=== PATIENT | male | born 1980 | race Caucasian/White ===

== ENCOUNTER 2016-10-30 02:14 | Inpatient (IN) | payer MEDICAID, OTHER ==
[~2016-10-30] VITALS: Ht 167.6 cm; Wt 86.3 kg
[~2016-10-30 02:14] MED LIST: IBUPROFEN
--- NOTE | 2016-10-30 03:27 | ERA ---
ER Documentation Chief Complaint Date/Time DATE: 10/30/16 TIME: 03:26 Chief Complaint mid abd pain since 3 hours ago w/ vomiting HPI The patient is a 36-year-old male, presenting to the ER because of diffuse abdominal pain that began about 8 PM, associated with vomiting, initially foot then mucus. He denies similar symptoms previously, denies fever, chills, neck pain, chest pain, dysuria. He smokes socially, denies drinking Past medical history/surgical history: None ROS All systems reviewed and are negative except as per history of present illness. Medications Home Meds Discontinued Reported Medications [Ibuprofen] No Conflict Check 10/24/11 Allergies Allergies: Coded Allergies: No Known Allergy (Unverified , 10/30/16) PMhx/Soc History of Surgery: No (NO MEDICAL/SURGICAL HX) Anesthesia Reaction: No Hx Neurological Disorder: No Hx Respiratory Disorders: No Hx Cardiac Disorders: No Hx Psychiatric Problems: No Hx Miscellaneous Medical Probl: No Hx Alcohol Use: No Hx Substance Use: No Hx Tobacco Use: No Physical Exam Vitals Vital Signs Date Time Temp Pulse Resp B/P Pulse Ox O2 Delivery O2 Flow Rate FiO2 10/30/16 02:16 98.7 92 20 130/71 100 Physical Exam Const: No acute distress. Head: Atraumatic. Eyes: Normal Conjunctiva. ENT: Normal External Ears, Nose and Mouth. Neck: Full range of motion. No meningismus. Resp: Clear to auscultation bilaterally. Cardio: Regular rate and rhythm. Abd: Soft, non distended, normal bowel sounds, diffuse abdominal tenderness, more tenderness at the left lower quadrant, no rigidity, rebound, CVA tenderness Skin: No petechiae or rashes. Back: No midline or flank tenderness. Ext: No cyanosis, or edema. Neur: Awake and alert. No focal deficit Psych: Normal Mood and Affect. Result Diagram: 10/30/16 0330 10/30/16 033 Results 24 hrs Laboratory Tests Test 10/30/16 03:30 White Blood Count 11.510^3/ul Red Blood Count 5.2910^6/ul Hemoglobin 16.3g/dl Hematocrit 47.3% Mean Corpuscular Volume 89.4fl Mean Corpuscular Hemoglobin 30.8pg Mean Corpuscular Hemoglobin Concent 34.5g/dl Red Cell Distribution Width 12.3% Platelet Count 54119^3/UL Mean Platelet Volume 9.9fl Neutrophils % 85.3% Lymphocytes % 8.2% Monocytes % 5.4% Eosinophils % 0.6% Basophils % 0.2% Nucleated Red Blood Cells % 0.0/100WBC Neutrophils # (Manual) 9.810^3/ul Lymphocytes # 0.910^3/ul Monocytes # 0.610^3/ul Eosinophils # 0.110^3/ul Basophils # 0.010^3/ul Nucleated Red Blood Cells # 0.010^3/ul Sodium Level 146mmol/L Potassium Level 3.8mmol/L Chloride Level 104mmol/L Carbon Dioxide Level 27mmol/L Anion Gap 19 Blood Urea Nitrogen 16mg/dl Creatinine 0.90mg/dl Glucose Level 129mg/dl Calcium Level 9.5mg/dl Total Bilirubin 0.3mg/dl Direct Bilirubin 0.00mg/dl Indirect Bilirubin 0.3mg/dl Aspartate Amino Transf (AST/SGOT) 27IU/L Alanine Aminotransferase (ALT/SGPT) 39IU/L Alkaline Phosphatase 58IU/L Total Protein 7.9g/dl Albumin 4.3g/dl Globulin 3.60g/dl Albumin/Globulin Ratio 1.19 Lipase 83U/L Current Medications Medications (Trade) Dose Ordered Sig/Matilda Route PRN Reason Start Time Stop Time Status Last Admin Dose Admin Sodium Chloride (NS) 1,000 ml @ 1,000 mls/hr Q1H ONCE IV 10/30/16 04:00 10/30/16 04:59 DC 10/30/16 04:01 Morphine Sulfate (morphine) 4 mg ONCE STAT IV 10/30/16 03:55 10/30/16 03:57 DC 10/30/16 04:01 Ondansetron HCl (Zofran Inj) 4 mg ONCE STAT IV 10/30/16 03:55 10/30/16 03:57 DC 10/30/16 04:01 Hydromorphone HCl 1 mg 1 mg ONCE ONCE IV 10/30/16 04:42 10/30/16 04:43 DC 10/30/16 04:51 Ciprofloxacin/ Dextrose 200 ml @ 200 mls/hr Q12 IVPB 10/30/16 09:00 UNV Metronidazole (Flagyl 500 Mg (Pmx)) 100 ml @ 100 mls/hr Q8 IVPB 10/30/16 14:00 UNV Ondansetron HCl (Zofran Inj) 4 mg Q6H PRN IV NAUSEA AND/OR VOMITING 10/30/16 07:00 UNV Morphine Sulfate (morphine) 2 mg Q4H PRN IV pain 10/30/16 07:00 UNV Famotidine 20 mg 20 mg BID IV 10/30/16 09:00 UNV Dextrose/Sodium Chloride (D5-1/2ns) 1,000 ml @ 125 mls/hr Q8H IV 10/30/16 07:00 UNV Docusate Sodium (Colace) 100 mg BID PO 10/30/16 09:00 UNV Acetaminophen (Tylenol Tab) 650 mg Q6H PRN PO PAIN AND OR ELEVATED TEMP 10/30/16 07:00 UNV Procedures/[place] [address] Radiology Main Line: [phone] DIAGNOSTIC IMAGING REPORT Patient: LYNDSEY ANDERSON : 1980 Age: 36 Sex: M MR #: [id number] DOS: 10/30/16 0356 Ordering MD: MUNDO MARR MD Location: E/R Room/Bed: PROCEDURE: CT Abdomen and pelvis without contrast. CLINICAL INDICATION: Abdominal pain. TECHNIQUE: CT scan of the abdomen and pelvis was performed on a multi- detector high-resolution CT scanner. Contiguous axial images were obtained from the lung bases to the ischial tuberosities without intravenous contrast. Coronal and sagittal reformatted images were also obtained. Images were reviewed on the PACS workstation. One or more of the following dose reduction techniques were used: - Automated exposure control. - Adjustment of the mA and/or kV according to patient size. - Use of iterative reconstruction technique. Exam CTD/vol = 15.96 mGy. Total exam DLP = 2236.58 mGy-cm. COMPARISON: None. FINDINGS: Evaluation of the lung bases demonstrates mild bibasilar atelectasis. There are multiple nodules within the right middle lobe measuring up to 5 mm in size. There are multiple nodules within the left lower lobe measuring up to 5 mm. Abdomen: The liver is normal in size. There is no focal mass or dilatation of the biliary tree. The gallbladder is not distended. The spleen, pancreas and bilateral adrenal glands are within normal limits. Bilateral kidneys are normal in size with no contour deforming mass identified. There is no radiopaque renal or ureteral calculus identified. There is no hydronephrosis or hydroureter. The abdominal aorta is of normal caliber. There is moderate stranding and nodularity of the retroperitoneal and mesenteric fat. There are mild to moderately dilated loops of small bowel with air-fluid levels. There is moderate retained stool within the colon. There is no free air. A normal appendix is identified. There is no diverticulosis or diverticulitis. There is no ascites. Pelvis: The bladder is unremarkable. The prostate and seminal vesicles are within normal limits. There is trace pelvic free fluid. There is no significant pelvic adenopathy. Evaluation of the osseous structures demonstrates no suspicious lytic or blastic lesion. IMPRESSION: Moderate stranding and nodularity of the retroperitoneal and mesenteric fat represents nonspecific mesenteritis-adenitis. Neoplastic process such as lymphoma should also be considered. Mild to moderately dilated loops of small bowel compatible with an ileus. Follow-up is recommended to exclude developing obstruction. Trace pelvic free fluid. Multiple nodules within bilateral lung base measuring up to 5 mm size. Further evaluation for metastatic disease is recommended. Mild bibasilar atelectasis. A call report was made to Dr. Marr at 04:33 a.m. .Mak Sahu MD, MD Date Time Electronically viewed and signed by .Mak Sahu MD, MD on 10/30/2016 04:36 .T/ CC: MUNDO MARR MD [place] [id number] Radiology Main Line: [phone] DIAGNOSTIC IMAGING REPORT Patient: LYNDSEY ANDERSON : 1980 Age: 36 Sex: M MR #: [id number] DOS: 10/30/16 0439 Ordering MD: MUNDO MARR MD Location: E/R Room/Bed: PROCEDURE: XR Chest. CLINICAL INDICATION: Shortness of breath TECHNIQUE: A single AP view of the chest was obtained. COMPARISON: None. FINDINGS: Lung volumes are low. No focal airspace opacification, pleural effusion or pneumothorax is seen. The cardiomediastinal silhouette is within normal limits for size. The osseous structures are unremarkable. IMPRESSION: Unremarkable chest x-ray. RPTAT: HH .Tessa Mackenzie MD, MD Date Time Electronically viewed and signed by .Tessa Mackenzie MD, MD on 10/30/2016 05 :49 .G/ CC: MUNDO MARR MD MEDICAL MAKING DECISION: The patient is a 36-year-old male, presenting to the ER because of acute enteric adenitis, acute ileus, concerning for lymphoma. He went to 1 L normal saline for clinical dehydration, morphine 4 mg IV and Dilaudid 1 mg IV for pain and Zofran formula IV for nausea with good response The differential diagnoses considered include but are not limited to cholelithiasis, cholecystitis, cystitis, pancreatitis, hepatitis, gastritis, peptic ulcer disease, gastric ulcer, appendicitis, diverticulitis, cholangitis, choledocholithiasis, partial small bowel obstruction, malignancy. Departure Diagnosis: Primary Impression: Abdominal pain Additional Impressions: Mesenteric adenitis Ileus Condition: Good Comments Consultation: I discussed the patient with the on-call surgeon Dr. Perez at 4: 50 AM, who was made aware of the lab, treatment, the present condition and he accepted the consult I discussed the findings with the patient. I discussed the patient with the on- call hospitalist Dr Wu. who was made aware of the lab, the treatment, the patient condition and the general surgeon. The patient is admitted to [facility] The patient's blood pressure was elevated (>120/80) but appears stable without evidence of hypertension emergency or urgency. The patient was counseled about the risks of hypertension and urged to pursue outpatient monitoring and therapy within a week with their primary care physician. MUNDO MARR MD Oct 30, 2016 03:26
[2016-10-30 03:42] LABS: BASOPHILS % 0.2 % (0.0-2.0); EOSINOPHILS # 0.1 10^3/ul (0.0-0.5); EOSINOPHILS % 0.6 % (0.0-7.0); HEMATOCRIT 47.3 % (42.0-52.0); HEMOGLOBIN 16.3 g/dl (14.0-18.0); LYMPHOCYTES # 0.9 10^3/ul (0.8-2.9); LYMPHOCYTES % 8.2 % (15.0-51.0); MEAN CORPUSCULAR HEMOGLOBIN 30.8 pg (29.0-33.0); MEAN CORPUSCULAR HGB CONC 34.5 g/dl (32.0-37.0); MEAN CORPUSCULAR VOLUME 89.4 fl (82.0-101.0); MEAN PLATELET VOLUME 9.9 fl (7.4-10.4); MONOCYTE # 0.6 10^3/ul (0.3-0.9); MONOCYTES % 5.4 % (0.0-11.0); NEUTROPHILS % 85.3 % (39.0-77.0); PLATELET COUNT 155 10^3/UL (140-415); RED BLOOD COUNT 5.29 10^6/ul (4.70-6.10); RED CELL DISTRIBUTION WIDTH 12.3 % (11.5-14.5); WHITE BLOOD COUNT 11.5 10^3/ul (4.8-10.8)
[2016-10-30] MEDS ORDERED: morphine 4 MG/ML VIAL IV STA (03:55)
[2016-10-30] MEDS ORDERED: ONDANSETRON 4 MG INJ IV STA (03:55)
[2016-10-30 03:57] LABS: ALBUMIN 4.3 g/dl (3.3-4.9); ALBUMIN/GLOBULIN RATIO 1.19; BILIRUBIN,INDIRECT 0.3 mg/dl (0-1.1); BILIRUBIN,TOTAL 0.3 mg/dl (0.2-1.3); CALCIUM 9.5 mg/dl (8.4-10.2); CREATININE 0.9 mg/dl (0.61-1.24); POTASSIUM 3.8 mmol/L (3.5-5.1); TOTAL PROTEIN 7.9 g/dl (6.1-8.1)
[2016-10-30] MEDS ORDERED: SOD CHLORIDE 0.9% 1,000 ML IV ONE (04:00)
--- NOTE | 2016-10-30 04:37 | RADRPT ---
PROCEDURE: CT Abdomen and pelvis without contrast. CLINICAL INDICATION: Abdominal pain. TECHNIQUE: CT scan of the abdomen and pelvis was performed on a multi-detector high-resolution CT scanner. Contiguous axial images were obtained from the lung bases to the ischial tuberosities wit hout intravenous contrast. Coronal and sagittal reformatted images were also obtained. Images were reviewed on the PACS workstation. One or more of the following dose reduction techniques were used: - Automated exposure control. - Adjustment of the mA and/or kV according to patient size. - Use of iterative reconstruction technique. Exam CTD/vol = 15.96 mGy. Total exam DLP = 2236.58 mGy-cm. COMPARISON: None. FINDINGS: Evaluation of the lung bases demonstrates mild bibasilar atelectasis. There are multiple nodules wit hin the right middle lobe measuring up to 5 mm in size. There are multiple nodules within the left lower lobe measuring up to 5 mm. Abdomen: The liver is normal in size. There is no focal mass or dilatation of the biliary tree. T he gallbladder is not distended. The spleen, pancreas and bilateral adrenal glands are within danielle l limits. Bilateral kidneys are normal in size with no contour deforming mass identified. There is no radiopaque renal or ureteral calculus identified. There is no hydronephrosis or hydroureter. T he abdominal aorta is of normal caliber. There is moderate stranding and nodularity of the retroperitoneal and mesenteric fat. There are mil d to moderately dilated loops of small bowel with air-fluid levels. There is moderate retained stoo l within the colon. There is no free air. A normal appendix is identified. There is no diverticul osis or diverticulitis. There is no ascites. Pelvis: The bladder is unremarkable. The prostate and seminal vesicles are within normal limits. There is trace pelvic free fluid. There is no significant pelvic adenopathy. Evaluation of the osseous structures demonstrates no suspicious lytic or blastic lesion. IMPRESSION: Moderate stranding and nodularity of the retroperitoneal and mesenteric fat represents nonspecific m esenteritis-adenitis. Neoplastic process such as lymphoma should also be considered. Mild to moderately dilated loops of small bowel compatible with an ileus. Follow-up is recommended to exclude developing obstruction. Trace pelvic free fluid. Multiple nodules within bilateral lung base measuring up to 5 mm size. Further evaluation for metas tatic disease is recommended. Mild bibasilar atelectasis. A call report was made to Dr. Guardado at 04:33 a.m. .Mak Sahu MD, MD Date Time Electronically viewed and signed by .Mak Sahu MD, MD on 10/30/2016 04:36 .T/
[2016-10-30] MEDS ORDERED: HYDROmorphONE 1 MG/ML SYG IV ONE (04:42)
--- NOTE | 2016-10-30 05:50 | RADRPT ---
PROCEDURE: XR Chest. CLINICAL INDICATION: Shortness of breath TECHNIQUE: A single AP view of the chest was obtained. COMPARISON: None. FINDINGS: Lung volumes are low. No focal airspace opacification, pleural effusion or pneumothorax is seen. T he cardiomediastinal silhouette is within normal limits for size. The osseous structures are unrema rkable. IMPRESSION: Unremarkable chest x-ray. RPTAT: HH .Tessa Mackenzie MD, MD Date Time Electronically viewed and signed by .Tessa Mackenzie MD, on 10/30/2016 05:49 .G/
[2016-10-30] MEDS ORDERED: ONDANSETRON 4 MG INJ IV PRN (07:00)
[2016-10-30] MEDS ORDERED: ACETAMINOPHEN 325 MG TAB PO PRN (07:00)
[2016-10-30] MEDS: FAMOTIDINE 20 MG INJ IV SCH ×2 (09:06→20:54)
[2016-10-30] MEDS: DEXTROSE 5%-0.45% NACL 1,000 ML IV SCH ×3 (09:07→18:07)
[2016-10-30] MEDS: metroNIDAZOLE 500 MG/NS (PMX) 100 ML IVPB SCH ×3 (09:08→20:58)
--- NOTE | 2016-10-30 10:28 | HP ---
DATE OF ADMISSION: 10/30/2016 PRESENTING COMPLAINT: Abdominal pain. HISTORY OF PRESENTING COMPLAINT: A 36-year-old male who presents with abdominal pain acute in right and mid abdomen that started a few hours prior to presentation. He has had associated nausea and vomiting with that. No fever. No shortness of breath. No chest pain. No history of similar in the past. PAST MEDICAL HISTORY: None. PAST SURGICAL HISTORY: None. ALLERGIES: HAS NO KNOWN DRUG ALLERGIES. SOCIAL HISTORY: Smokes daily. Denies alcohol or illicit drug use. FAMILY HISTORY: Noncontributory. REVIEW OF SYSTEMS: A 12-point review of systems was done. Pertinent findings are as noted. PHYSICAL EXAMINATION: VITAL SIGNS: Temperature 98.7, pulse 92, respirations 20, blood pressure 130/71, saturation 100 percent on room air. GENERAL: Lethargic, but arousable and alert. No distress. HEENT: Head normocephalic. Pupils equal and reactive. Mucous membranes moist. Posterior pharynx clear. No exudate. NECK: Supple. CHEST: Clear. CARDIOVASCULAR: S1, S2. No murmurs. ABDOMEN: Soft. Mid abdominal tenderness with mild guarding and no rebound. Positive bowel sounds. EXTREMITIES: No lower extremity edema. SKIN: Negative for rash or jaundice. PSYCHIATRIC: Cooperative and calm. LABORATORY VALUES: Leukocytosis of 11,000, predominance of neutrophils. Normal hemoglobin. Normal platelets. Chemistry sodium is 146. Otherwise CMP is normal. Lipase is normal. IMAGING: Chest x-ray showed no acute abnormality. CT scan showed presence of variable enteric adenitis for which a neoplastic process like a lymphoma cannot be ruled out. The patient also has multiple lung nodules measuring up to 5 mm concerning for variable metastatic disease and also mild to moderate . ASSESSMENT: A 36-year-old male who presents with mid abdominal pain with the followin. Metastatic adenitis concerning for neoplastic process. 2. Paravertebral pain from bowel ileus. 3. Pulmonary nodules which could represent metastatic process. 4. Tobacco use and abuse. PLAN: Is to admit the patient for surgical review and possible oncology review. Presents for pain control and see how he does. As mentioned earlier, we will get surgical and oncological results. The patient has been counseled on the risks of tobacco use and needing to quit. We will continue to reinforce this during his hospitalization. Dictated By: Romana Wu MD /bj/nba /Document#: [id number]
[2016-10-30] MEDS: CIPROFLOXACIN 400MG/D5W 200 ML IVPB SCH ×2 (11:06→20:53)
[2016-10-30] MEDS: morphine 2 MG INJ IV PRN ×3 (11:07→21:03)
[2016-10-30] MEDS: DOCUSATE SODIUM 100 MG CAP PO SCH ×2 (12:48→20:57)
[2016-10-30] MEDS ORDERED: SOD CHLORIDE 0.9% 100 ML ONE (13:08)
[2016-10-30] MEDS ORDERED: IOHEXOL 300MG/ML 150 ML BTL ONE (13:08)
--- NOTE | 2016-10-30 14:40 | RADRPT ---
PROCEDURE: CT Chest with contrast. CLINICAL INDICATION: Lung nodules TECHNIQUE: CT of the chest was performed on a multi-detector scanner following the uncomplicated I V administration of 90 cc of Omnipaque 300. Coronal and sagittal images were reformatted from the a xial data set. One or more of the following dose reduction techniques were used: automated exposure control, adjustment of the mA and/or kV according to patient size, use of iterative reconstruction technique. CTDI = 15.4 mGy. DLP = 560.82 mGy-cm. COMPARISON: CT, 10/30/2016 FINDINGS: Nonspecific patchy ground-glass opacity and septal thickening is seen at the lung bases. No pleural effusion or pneumothorax is identified. The central tracheobronchial tree is clear. Nonspecific s cattered small pulmonary nodules are seen bilaterally measuring up to 5 mm. The heart size is normal without pericardial effusion. There is no thoracic aortic aneurysm or diss ection. Poorly defined infiltrative soft tissue is seen in the anterior mediastinum, spanning appro ximately 5.6 x 2.1 cm (3-29). No lymphadenopathy is seen in the chest. Right thyroid nodule is tommie ntified measuring 1.9 cm (3-5). Infiltrative soft tissue is again seen upper retroperitoneal and mesenteric fat, incompletely evalua marcelo on this exam. The surrounding osseous structures are remarkable for mild degenerative enthesopa thy of the spine. No osteolytic or osteoblastic lesion is detected. IMPRESSION: 1. Poorly defined infiltrative soft tissue is seen in the anterior mediastinal, upper retroperitone al, and mesenteric fat - findings remain concerning for infiltrative neoplastic process such as lymp sawyer. 2. Nonspecific scattered small pulmonary nodules are seen bilaterally measuring up to 5 mm. Additi onal neoplastic involvement is not excluded. Attention on follow-up is recommended. 3. Nonspecific hazy ground-glass opacity and septal thickening is noted at the lung bases - conside rations include atypical pneumonia, pulmonary edema, and interstitial pneumonitis. 4. Right thyroid nodule is identified measuring 1.9 cm - consider ultrasound correlation. RPTAT: AA .Jakob Tai MD, Date Time Electronically viewed and signed by .Jakob Tai MD, on 10/30/2016 14:40 .Stella
[2016-10-30 15:29] VITALS: BP 120/89; RESP 18
[2016-10-30 15:46] VITALS: Ht 167.6 cm; Wt 86.3 kg
[2016-10-30 15:53] VITALS: BP 120/89; PULSE 58; RESP 18
[2016-10-30 20:37] VITALS: BP 138/76; RESP 20
--- NOTE | 2016-10-30 20:57 | CONS ---
Date/Time of Note Date/Time of Note DATE: 10/30/16 TIME: 20:51 Assessment/Plan Assessment/Plan Chief Complaint/Hosp Course 36-year-old male with abdominal pain * CT scan reviewed. Report reads as possible mesenteric adenitis, ileus, possible lymphoma * Can advance to clear liquids as tolerated * Check LDH, beta microglobulin * Consider CT-guided biopsy of most accessible lesion if possible I discussed the above with the patient in detail and ensured that all of his questions were answered. Further recommendations were made based on patient's clinical course. Problems: Consultation Date/Type/Reason Admit Date/Time Oct 30, 2016 at 04:53 Date of Consultation: Oct 30, 2016 Type of Consultation: GENERAL SURGERY Reason for Consultation Abdominal pain Hx of Present Illness Patient is an otherwise healthy 36-year-old male who presented to the emergency room complaining of a 2 day history of abdominal pain. He describes abdominal pain as being diffuse but worse in the left side of the abdomen. He reports nausea and vomiting. He describes his last bowel movement as being 2 days ago. He denies any fever/chills. He denies any similar episodes of pain in the past. He denies any sick contacts, recent travel or weight loss. He denies any night sweats or chills. A 14 point review of systems was conducted and was negative except for that which is mentioned in HPI Past Medical History Medical History: no pertinent history Past Surgical History Past Surgical Hx: no surgical history Family History Significant Family History: no pertinent family hx Social History Smoking Status: Current every day smoker Exam/Review of Systems Vital Signs Vitals Vital Signs Date Time Temp Pulse Resp B/P Pulse Ox O2 Delivery O2 Flow Rate FiO2 10/30/16 20:37 98.1 68 20 138/76 98 10/30/16 15:53 Room Air Exam GENERAL: Awake, alert, oriented x 3. No acute distress. SKIN: No jaundice. HEENT: PERRLA, EOMI, No Scleral Icterus NECK: Supple without JVD CARDIOVASCULAR: S1S2, regular rate and rhythm. No murmurs appreciated. RESPIRATORY: Clear to auscultation bilaterally. ABDOMEN: Soft, bowel sounds present, nondistended, minimal left sided tenderness to deep palpation. There is no rebound or guarding or evidence of peritonitis. There are no palpable masses. EXTREMITIES: Free range of motion x 4. No cyanosis, edema, or clubbing. NEUROLOGIC: Cranial nerves II-XII are intact. Sensation is intact grossly. Results Result Diagram: 10/30/16 0330 10/30/16 0330 Results 24 hrs Laboratory Tests Test 10/30/16 03:30 10/30/16 13:30 White Blood Count 11.5 H Red Blood Count 5.29 Hemoglobin 16.3 Hematocrit 47.3 Mean Corpuscular Volume 89.4 Mean Corpuscular Hemoglobin 30.8 Mean Corpuscular Hemoglobin Concent 34.5 Red Cell Distribution Width 12.3 Platelet Count 155 Mean Platelet Volume 9.9 Neutrophils % 85.3 H Lymphocytes % 8.2 L Monocytes % 5.4 Eosinophils % 0.6 Basophils % 0.2 Nucleated Red Blood Cells % 0.0 Neutrophils # (Manual) 9.8 H Lymphocytes # 0.9 Monocytes # 0.6 Eosinophils # 0.1 Basophils # 0.0 Nucleated Red Blood Cells # 0.0 Sodium Level 146 H Potassium Level 3.8 Chloride Level 104 Carbon Dioxide Level 27 Anion Gap 19 H Blood Urea Nitrogen 16 Creatinine 0.90 Glucose Level 129 Calcium Level 9.5 Total Bilirubin 0.3 Direct Bilirubin 0.00 Indirect Bilirubin 0.3 Aspartate Amino Transf (AST/SGOT) 27 Alanine Aminotransferase (ALT/SGPT) 39 Alkaline Phosphatase 58 Total Protein 7.9 Albumin 4.3 Globulin 3.60 H Albumin/Globulin Ratio 1.19 Lipase 83 C-Reactive Protein < 0.5 Thyroid Stimulating Hormone (TSH) 1.510 Medications Medications Current Medications Ciprofloxacin/ Dextrose 200 ml @ 200 mls/hr Q12 IVPB Last administered on 10/30 11:06; Admin Dose 200 MLS/HR; Start 10/30/16 at 10:00 Metronidazole (Flagyl 500 Mg (Pmx)) 100 ml @ 100 mls/hr Q8 IVPB Last administered on 10/30/16 16:00; Admin Dose 100 MLS/HR; Start 10/30/16 at 09:00 Ondansetron HCl (Zofran Inj) 4 mg Q6H PRN IV NAUSEA AND/OR VOMITING Last administered on 10/30/16 11:07; Admin Dose 4 MG; Start 10/30/16 at 07:00 Morphine Sulfate (morphine) 2 mg Q4H PRN IV pain Last administered on 16:00; Admin Dose 2 MG; Start 10/30/16 at 07:00 Famotidine 20 mg 20 mg BID IV Last administered on 10/30/16 09:06; Admin Dose 20 MG; Start 10/30/16 at 09:00 Dextrose/Sodium Chloride (D5-1/2ns) 1,000 ml @ 125 mls/hr Q8H IV Last administered on 10/30/16 18:07; Admin Dose 125 MLS/HR; Start 10/30/16 at 09:00 Docusate Sodium (Colace) 100 mg BID PO Last administered on 10/30/16 12:48; Admin Dose 100 MG; Start 10/30/16 at 09:00 Acetaminophen (Tylenol Tab) 650 mg Q6H PRN PO PAIN AND OR ELEVATED TEMP; Start 10/30/16 at 07:00 Procedures Procedures PROCEDURE: CT Abdomen and pelvis without contrast. CLINICAL INDICATION: Abdominal pain. TECHNIQUE: CT scan of the abdomen and pelvis was performed on a multi- detector high-resolution CT scanner. Contiguous axial images were obtained from the lung bases to the ischial tuberosities without intravenous contrast. Coronal and sagittal reformatted images were also obtained. Images were reviewed on the PACS workstation. One or more of the following dose reduction techniques were used: - Automated exposure control. - Adjustment of the mA and/or kV according to patient size. - Use of iterative reconstruction technique. Exam CTD/vol = 15.96 mGy. Total exam DLP = 2236.58 mGy-cm. COMPARISON: None. FINDINGS: Evaluation of the lung bases demonstrates mild bibasilar atelectasis. There are multiple nodules within the right middle lobe measuring up to 5 mm in size. There are multiple nodules within the left lower lobe measuring up to 5 mm. Abdomen: The liver is normal in size. There is no focal mass or dilatation of the biliary tree. The gallbladder is not distended. The spleen, pancreas and bilateral adrenal glands are within normal limits. Bilateral kidneys are normal in size with no contour deforming mass identified. There is no radiopaque renal or ureteral calculus identified. There is no hydronephrosis or hydroureter. The abdominal aorta is of normal caliber. There is moderate stranding and nodularity of the retroperitoneal and mesenteric fat. There are mild to moderately dilated loops of small bowel with air-fluid levels. There is moderate retained stool within the colon. There is no free air. A normal appendix is identified. There is no diverticulosis or diverticulitis. There is no ascites. Pelvis: The bladder is unremarkable. The prostate and seminal vesicles are within normal limits. There is trace pelvic free fluid. There is no significant pelvic adenopathy. Evaluation of the osseous structures demonstrates no suspicious lytic or blastic lesion. IMPRESSION: Moderate stranding and nodularity of the retroperitoneal and mesenteric fat represents nonspecific mesenteritis-adenitis. Neoplastic process such as lymphoma should also be considered. Mild to moderately dilated loops of small bowel compatible with an ileus. Follow-up is recommended to exclude developing obstruction. Trace pelvic free fluid. Multiple nodules within bilateral lung base measuring up to 5 mm size. Further evaluation for metastatic disease is recommended. Mild bibasilar atelectasis. A call report was made to Dr. Marr at 04:33 a.m. .Mak Sahu MD, MD Date Time Electronically viewed and signed by .Mak Sahu MD, MD on 10/30/2016 04:36 .T/ CC: MUNDO MARR MD, MICHAEL A. MD Oct 30, 2016 20:57
[2016-10-30] MEDS ORDERED: MAGNESIUM HYDROXIDE 30ML CUP PO ONE (21:00)
[2016-10-31 02:00] VITALS: BP 107/57; PULSE 53; RESP 18
[2016-10-31] MEDS: DEXTROSE 5%-0.45% NACL 1,000 ML IV SCH ×3 (06:30→16:13)
[2016-10-31 06:32] LABS: BASOPHILS % 0.2 % (0.0-2.0); EOSINOPHILS # 0.1 10^3/ul (0.0-0.5); EOSINOPHILS % 2.1 % (0.0-7.0); HEMATOCRIT 44.3 % (42.0-52.0); HEMOGLOBIN 14.9 g/dl (14.0-18.0); LYMPHOCYTES # 1.4 10^3/ul (0.8-2.9); LYMPHOCYTES % 22.3 % (15.0-51.0); MEAN CORPUSCULAR HEMOGLOBIN 30.4 pg (29.0-33.0); MEAN CORPUSCULAR HGB CONC 33.6 g/dl (32.0-37.0); MEAN CORPUSCULAR VOLUME 90.4 fl (82.0-101.0); MEAN PLATELET VOLUME 10.2 fl (7.4-10.4); MONOCYTE # 0.6 10^3/ul (0.3-0.9); MONOCYTES % 8.9 % (0.0-11.0); NEUTROPHILS % 66.2 % (39.0-77.0); PLATELET COUNT 141 10^3/UL (140-415); RED CELL DISTRIBUTION WIDTH 12.2 % (11.5-14.5); WHITE BLOOD COUNT 6.2 10^3/ul (4.8-10.8)
[2016-10-31] MEDS: metroNIDAZOLE 500 MG/NS (PMX) 100 ML IVPB SCH (06:37)
[2016-10-31 06:59] LABS: CALCIUM 8.7 mg/dl (8.4-10.2); CHOL/HDL RATIO 4.7 RATIO; CREATININE 0.97 mg/dl (0.61-1.24); MAGNESIUM 2.3 mg/dl (1.7-2.5); PHOSPHORUS 3.9 mg/dl (2.5-4.9)
[2016-10-31 08:06] LABS: ALBUMIN 3.2 g/dl (3.3-4.9); BILIRUBIN,INDIRECT 0.3 mg/dl (0-1.1); BILIRUBIN,TOTAL 0.3 mg/dl (0.2-1.3); TOTAL PROTEIN 6.1 g/dl (6.1-8.1)
[2016-10-31 08:26] VITALS: BP 108/56; RESP 16
[2016-10-31] MEDS: CIPROFLOXACIN 400MG/D5W 200 ML IVPB SCH (08:43)
[2016-10-31] MEDS: DOCUSATE SODIUM 100 MG CAP PO SCH ×4 (08:43→21:19)
[2016-10-31] MEDS: FAMOTIDINE 20 MG INJ IV SCH ×2 (08:44→21:19)
--- NOTE | 2016-10-31 10:02 | PN ---
Date/Time of Note Date/Time of Note DATE: 10/31/16 TIME: 10:00 Assessment/Plan Assessment/Plan Assessment/Plan 36-year-old male with abdominal pain * CT scan reviewed. Report reads as possible mesenteric adenitis, ileus, possible lymphoma * Patient having bowel movements and tolerating clear liquids. Advance diet as tolerated. * LDH, beta microglobulin pending * Ultrasound-guided biopsy of right thyroid nodule * Consider CT-guided biopsy of most accessible lesion if possible I discussed the above with the patient in detail and ensured that all of his questions were answered. Further recommendations were made based on patient's clinical course. Subjective 24 Hr Interval Summary Feels a little better. Abdominal pain improved today. Afebrile. Had a bowel movement. Exam/Review of Systems Vital Signs Vitals Vital Signs Date Time Temp Pulse Resp B/P Pulse Ox O2 Delivery O2 Flow Rate FiO2 10/31/16 08:26 98.1 61 16 108/56 97 10/30/16 15:53 Room Air Intake and Output 10/30/16 10/30/16 10/31/16 15:00 23:00 07:00 Intake Total 100 ml 1400 ml 1000 ml Balance 100 ml 1400 ml 1000 ml Exam Free Text/Dictation GENERAL: Awake, alert, oriented x 3. No acute distress. CARDIOVASCULAR: S1S2, regular rate and rhythm. No murmurs appreciated. RESPIRATORY: Clear to auscultation bilaterally. ABDOMEN: Soft, bowel sounds present, nondistended, minimal left sided tenderness to deep palpation. There is no rebound or guarding or evidence of peritonitis. There are no palpable masses. EXTREMITIES: Free range of motion x 4. No cyanosis, edema, or clubbing. Results Result Diagram: 10/31/16 0457 10/31/16 0457 MUNDO COCHRAN MD Oct 31, 2016 10:02
--- NOTE | 2016-10-31 13:08 | PN ---
Date/Time of Note Date/Time of Note DATE: 10/31/16 TIME: 13:04 Assessment/Plan VTE Prophylaxis VTE Prophylaxis Intervention: LMWH Lines/Catheters IV Catheter Type (from Nrs): Peripheral IV Assessment/Plan Chief Complaint/Hosp Course 36 [facility] who [facility] with abd pain. Imaging showing ileus and diffuse lymphadenopathy in abdomen, lungs, mediastinum concernign for lymphoma Abdominal pain wiht ileus: - Had BM yesterday, feels better Lymphadenopathy: - Biopsy needed to evaluate for lymphoma, germ cell tumor, etc. Consult IR, CV surg, pulm. Not sure which is most easily accessible - LDH, AFP, HCG Discharge following biopsy Problems: Subjective 24 Hr Interval Summary Free Text/Dictation Feeling much better today Wants to eat Discussed CT findings and possibility of lymphoma, need for biopsy Exam/Review of Systems Vital Signs Vitals Vital Signs Date Time Temp Pulse Resp B/P Pulse Ox O2 Delivery O2 Flow Rate FiO2 10/31/16 08:26 98.1 61 16 108/56 97 10/30/16 15:53 Room Air Intake and Output 10/30/16 10/30/16 10/31/16 15:00 23:00 07:00 Intake Total 100 ml 1400 ml 1000 ml Balance 100 ml 1400 ml 1000 ml Exam Well appearing no distress No palpable LN in neck Soft belly, nontender Results Result Diagram: 10/31/16 0457 10/31/16 0457 Results 24 hrs Laboratory Tests Test 10/30/16 13:30 10/31/16 04:00 10/31/16 04:57 C-Reactive Protein < 0.5 Thyroid Stimulating Hormone (TSH) 1.510 Total Bilirubin 0.3 Direct Bilirubin 0.00 Indirect Bilirubin 0.3 Aspartate Amino Transf (AST/SGOT) 24 Alanine Aminotransferase (ALT/SGPT) 35 Alkaline Phosphatase 41 L Total Protein 6.1 # Albumin 3.2 #L White Blood Count 6.2 # Red Blood Count 4.90 Hemoglobin 14.9 Hematocrit 44.3 Mean Corpuscular Volume 90.4 Mean Corpuscular Hemoglobin 30.4 Mean Corpuscular Hemoglobin Concent 33.6 Red Cell Distribution Width 12.2 Platelet Count 141 Mean Platelet Volume 10.2 Neutrophils % 66.2 Lymphocytes % 22.3 Monocytes % 8.9 Eosinophils % 2.1 Basophils % 0.2 Nucleated Red Blood Cells % 0.0 Neutrophils # (Manual) 4.1 Lymphocytes # 1.4 Monocytes # 0.6 Eosinophils # 0.1 Basophils # 0.0 Nucleated Red Blood Cells # 0.0 Sodium Level 139 Potassium Level 4.0 Chloride Level 100 Carbon Dioxide Level 31 Anion Gap 12 # Blood Urea Nitrogen 11 Creatinine 0.97 Glucose Level 115 Hemoglobin A1c 5.8 Calcium Level 8.7 Phosphorus Level 3.9 Magnesium Level 2.3 Triglycerides Level 109 Cholesterol Level 152 LDL Cholesterol, Calculated 98 HDL Cholesterol 32 Cholesterol/HDL Ratio 4.7 Medications Medications Current Medications Ondansetron HCl (Zofran Inj) 4 mg Q6H PRN IV NAUSEA AND/OR VOMITING Last administered on 10/30/16 11:07; Admin Dose 4 MG; Start 10/30/16 at 07:00 Morphine Sulfate (morphine) 2 mg Q4H PRN IV pain Last administered on 21:03; Admin Dose 2 MG; Start 10/30/16 at 07:00 Famotidine 20 mg 20 mg BID IV Last administered on 10/31/16 08:44; Admin Dose 20 MG; Start 10/30/16 at 09:00 Dextrose/Sodium Chloride (D5-1/2ns) 1,000 ml @ 125 mls/hr Q8H IV Last administered on 10/31/16 06:30; Admin Dose 125 MLS/HR; Start 10/30/16 at 09:00 Docusate Sodium (Colace) 100 mg BID PO Last administered on 10/30/16 20:57; Admin Dose 100 MG; Start 10/30/16 at 09:00 Acetaminophen (Tylenol Tab) 650 mg Q6H PRN PO PAIN AND OR ELEVATED TEMP; Start 10/30/16 at 07:00 Docusate Sodium (Colace) 100 mg TID PO Last administered on 10/31/16 12:12; Admin Dose 100 MG; Start 10/31/16 at 13:00 ESTRADA TOMPKINS MD Oct 31, 2016 13:08
--- NOTE | 2016-10-31 13:33 | CONS ---
Date/Time of Note Date/Time of Note DATE: 10/31/16 TIME: 13:27 Assessment/Plan Assessment/Plan Additional Assessment/Plan Mediastinal mass Plan for mediastinoscopy if no other diagnosis is made Consultation Date/Type/Reason Admit Date/Time Oct 30, 2016 at 04:53 Date of Consultation: Oct 31, 2016 Reason for Consultation mediastinal mass Hx of Present Illness HISTORY OF PRESENTING COMPLAINT: A 36-year-old male who presents with abdominal pain acute in right and mid abdomen that started a few hours prior to presentation. He has had associated nausea and vomiting with that. No fever. No shortness of breath. No chest pain. No history of similar in the past. CT of the chest was done which shows a 5 cm anterior mediastinal mass suspicious for lymphoma Cardiovascular: no complaints Gastrointestinal: no complaints Genitourinary: no complaints Musculoskeletal: no complaints Skin: no complaints Past Medical History Medical History: no pertinent history Past Surgical History Past Surgical Hx: no surgical history Social History Smoking Status: Current every day smoker Exam/Review of Systems Vital Signs Vitals Vital Signs Date Time Temp Pulse Resp B/P Pulse Ox O2 Delivery O2 Flow Rate FiO2 10/31/16 08:26 98.1 61 16 108/56 97 10/30/16 15:53 Room Air Intake and Output 10/30/16 10/30/16 10/31/16 15:00 23:00 07:00 Intake Total 100 ml 1400 ml 1000 ml Balance 100 ml 1400 ml 1000 ml Exam ENMT: nl external ears & nose, nl lips & teeth, nl nasal mucosa & septum Neck: non-tender, supple Respiratory: clear to auscultation, normal air movement Cardiovascular: nl pulses, regular rate and rhythm Gastrointestinal: nl liver, spleen, non-tender, soft Results Result Diagram: 10/31/16 0457 10/31/16 0457 Results 24 hrs Laboratory Tests Test 10/30/16 13:30 10/31/16 04:00 10/31/16 04:57 C-Reactive Protein < 0.5 Thyroid Stimulating Hormone (TSH) 1.510 Total Bilirubin 0.3 Direct Bilirubin 0.00 Indirect Bilirubin 0.3 Aspartate Amino Transf (AST/SGOT) 24 Alanine Aminotransferase (ALT/SGPT) 35 Alkaline Phosphatase 41 L Total Protein 6.1 # Albumin 3.2 #L White Blood Count 6.2 # Red Blood Count 4.90 Hemoglobin 14.9 Hematocrit 44.3 Mean Corpuscular Volume 90.4 Mean Corpuscular Hemoglobin 30.4 Mean Corpuscular Hemoglobin Concent 33.6 Red Cell Distribution Width 12.2 Platelet Count 141 Mean Platelet Volume 10.2 Neutrophils % 66.2 Lymphocytes % 22.3 Monocytes % 8.9 Eosinophils % 2.1 Basophils % 0.2 Nucleated Red Blood Cells % 0.0 Neutrophils # (Manual) 4.1 Lymphocytes # 1.4 Monocytes # 0.6 Eosinophils # 0.1 Basophils # 0.0 Nucleated Red Blood Cells # 0.0 Sodium Level 139 Potassium Level 4.0 Chloride Level 100 Carbon Dioxide Level 31 Anion Gap 12 # Blood Urea Nitrogen 11 Creatinine 0.97 Glucose Level 115 Hemoglobin A1c 5.8 Calcium Level 8.7 Phosphorus Level 3.9 Magnesium Level 2.3 Triglycerides Level 109 Cholesterol Level 152 LDL Cholesterol, Calculated 98 HDL Cholesterol 32 Cholesterol/HDL Ratio 4.7 Medications Medications Current Medications Ondansetron HCl (Zofran Inj) 4 mg Q6H PRN IV NAUSEA AND/OR VOMITING Last administered on 10/30/16 11:07; Admin Dose 4 MG; Start 10/30/16 at 07:00 Morphine Sulfate (morphine) 2 mg Q4H PRN IV pain Last administered on 21:03; Admin Dose 2 MG; Start 10/30/16 at 07:00 Famotidine 20 mg 20 mg BID IV Last administered on 10/31/16 08:44; Admin Dose 20 MG; Start 10/30/16 at 09:00 Dextrose/Sodium Chloride (D5-1/2ns) 1,000 ml @ 125 mls/hr Q8H IV Last administered on 10/31/16 06:30; Admin Dose 125 MLS/HR; Start 10/30/16 at 09:00 Docusate Sodium (Colace) 100 mg BID PO Last administered on 10/30/16 20:57; Admin Dose 100 MG; Start 10/30/16 at 09:00 Acetaminophen (Tylenol Tab) 650 mg Q6H PRN PO PAIN AND OR ELEVATED TEMP; Start 10/30/16 at 07:00 Docusate Sodium (Colace) 100 mg TID PO Last administered on 10/31/16 12:12; Admin Dose 100 MG; Start 10/31/16 at 13:00 CAROLYN GARRETT MD Oct 31, 2016 13:33
[2016-10-31 14:20] VITALS: BP 113/59; RESP 18
--- NOTE | 2016-10-31 16:40 | CONS ---
Date/Time of Note Date/Time of Note DATE: 10/31/16 TIME: 16:34 Assessment/Plan Assessment/Plan Additional Assessment/Plan IMP: 1. 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 Random Hematogenous Pulm Nodules--in conjunction with the mediastinal mass, makes GCT most likely. However, consider OGD RECS: 1. Tumor markers including AFP and HCG 2. Testicular U/S 3. Serum TB Quant Gold and Cocci serologies 4. CT-guided biopsy of anterior mediastinal mass (please discuss with IR) Consultation Date/Type/Reason Admit Date/Time Oct 30, 2016 at 04:53 Type of Consultation: Pulm Hx of Present Illness 36-year-old man with no PMHx who presented with abdominal pain, found on thoracic CT to have a low density heterogenous anterior mediastinal mass and subtle random parenchymal subcm pulm nodules. Constitutional: no complaints Eyes: no complaints ENT: no complaints Cardiovascular: no complaints Gastrointestinal: no complaints, pain Genitourinary: no complaints Musculoskeletal: no complaints Skin: no complaints Neurologic: no complaints Endocrine: no complaints Lymphatic: no complaints Psychological: no complaints Past Medical History Medical History: no pertinent history Past Surgical History Past Surgical Hx: no surgical history Social History Smoking Status: Current every day smoker Drug Use: none Exam/Review of Systems Vital Signs Vitals Vital Signs Date Time Temp Pulse Resp B/P Pulse Ox O2 Delivery O2 Flow Rate FiO2 10/31/16 14:20 98.2 59 18 113/59 96 10/30/16 15:53 Room Air Intake and Output 10/30/16 10/30/16 10/31/16 15:00 23:00 07:00 Intake Total 100 ml 1400 ml 1000 ml Balance 100 ml 1400 ml 1000 ml Exam Constitutional: alert, oriented, well developed Psych: nl mood/affect, no complaints Head: atraumatic, normocephalic Eyes: EOMI, nl conjunctiva, nl lids ENMT: nl external ears & nose, nl lips & teeth, nl nasal mucosa & septum Neck: non-tender, supple Respiratory: clear to auscultation, normal air movement Cardiovascular: nl pulses, regular rate and rhythm Gastrointestinal: nl liver, spleen, non-tender, soft Musculoskeletal: nl extremities to inspection, nl gait and stance Neurological: HEEL LIFT GOUGER II-XII intact, nl mental status, nl speech, nl strength Results Result Diagram: 10/31/16 0457 10/31/16 0457 Results 24 hrs Laboratory Tests Test 10/31/16 04:00 10/31/16 04:57 10/31/16 13:24 Total Bilirubin 0.3 Direct Bilirubin 0.00 Indirect Bilirubin 0.3 Aspartate Amino Transf (AST/SGOT) 24 Alanine Aminotransferase (ALT/SGPT) 35 Alkaline Phosphatase 41 L Total Protein 6.1 # Albumin 3.2 #L White Blood Count 6.2 # Red Blood Count 4.90 Hemoglobin 14.9 Hematocrit 44.3 Mean Corpuscular Volume 90.4 Mean Corpuscular Hemoglobin 30.4 Mean Corpuscular Hemoglobin Concent 33.6 Red Cell Distribution Width 12.2 Platelet Count 141 Mean Platelet Volume 10.2 Neutrophils % 66.2 Lymphocytes % 22.3 Monocytes % 8.9 Eosinophils % 2.1 Basophils % 0.2 Nucleated Red Blood Cells % 0.0 Neutrophils # (Manual) 4.1 Lymphocytes # 1.4 Monocytes # 0.6 Eosinophils # 0.1 Basophils # 0.0 Nucleated Red Blood Cells # 0.0 Sodium Level 139 Potassium Level 4.0 Chloride Level 100 Carbon Dioxide Level 31 Anion Gap 12 # Blood Urea Nitrogen 11 Creatinine 0.97 Glucose Level 115 Hemoglobin A1c 5.8 Calcium Level 8.7 Phosphorus Level 3.9 Magnesium Level 2.3 Triglycerides Level 109 Cholesterol Level 152 LDL Cholesterol, Calculated 98 HDL Cholesterol 32 Cholesterol/HDL Ratio 4.7 Lactate Dehydrogenase 295 L Medications Medications Current Medications Ondansetron HCl (Zofran Inj) 4 mg Q6H PRN IV NAUSEA AND/OR VOMITING Last administered on 10/30/16 11:07; Admin Dose 4 MG; Start 10/30/16 at 07:00 Morphine Sulfate (morphine) 2 mg Q4H PRN IV pain Last administered on 21:03; Admin Dose 2 MG; Start 10/30/16 at 07:00 Famotidine 20 mg 20 mg BID IV Last administered on 10/31/16 08:44; Admin Dose 20 MG; Start 10/30/16 at 09:00 Dextrose/Sodium Chloride (D5-1/2ns) 1,000 ml @ 125 mls/hr Q8H IV Last administered on 10/31/16 16:13; Admin Dose 125 MLS/HR; Start 10/30/16 at 09:00 Docusate Sodium (Colace) 100 mg BID PO Last administered on 10/30/16 20:57; Admin Dose 100 MG; Start 10/30/16 at 09:00 Acetaminophen (Tylenol Tab) 650 mg Q6H PRN PO PAIN AND OR ELEVATED TEMP; Start 10/30/16 at 07:00 Docusate Sodium (Colace) 100 mg TID PO Last administered on 10/31/16 12:12; Admin Dose 100 MG; Start 10/31/16 at 13:00 SHANELLE RUIZ MD Oct 31, 2016 16:40
[2016-10-31 21:54] VITALS: BP 104/60; RESP 18
[2016-11-01] MEDS: DEXTROSE 5%-0.45% NACL 1,000 ML IV SCH ×4 (01:00→16:09)
[2016-11-01 02:00] VITALS: BP 91/45; RESP 17
[2016-11-01 07:05] LABS: BASOPHILS % 0.2 % (0.0-2.0); EOSINOPHILS # 0.2 10^3/ul (0.0-0.5); EOSINOPHILS % 3.3 % (0.0-7.0); HEMATOCRIT 42.7 % (42.0-52.0); HEMOGLOBIN 14.2 g/dl (14.0-18.0); LYMPHOCYTES # 1.2 10^3/ul (0.8-2.9); LYMPHOCYTES % 27.3 % (15.0-51.0); MEAN CORPUSCULAR HEMOGLOBIN 30.1 pg (29.0-33.0); MEAN CORPUSCULAR HGB CONC 33.3 g/dl (32.0-37.0); MEAN CORPUSCULAR VOLUME 90.7 fl (82.0-101.0); MEAN PLATELET VOLUME 10.7 fl (7.4-10.4); MONOCYTE # 0.4 10^3/ul (0.3-0.9); MONOCYTES % 8.2 % (0.0-11.0); NEUTROPHILS % 60.8 % (39.0-77.0); PLATELET COUNT 123 10^3/UL (140-415); POSITIVE DIFF @See below; RED BLOOD COUNT 4.71 10^6/ul (4.70-6.10); RED CELL DISTRIBUTION WIDTH 12.5 % (11.5-14.5); WHITE BLOOD COUNT 4.5 10^3/ul (4.8-10.8)
[2016-11-01 08:03] VITALS: BP 118/58; RESP 18
[2016-11-01 08:07] LABS: POTASSIUM 3.8 mmol/L (3.5-5.1)
[2016-11-01 08:08] LABS: CALCIUM 8.6 mg/dl (8.4-10.2); CREATININE 0.95 mg/dl (0.61-1.24)
[2016-11-01] MEDS: DOCUSATE SODIUM 100 MG CAP PO SCH ×4 (08:37→21:07)
[2016-11-01] MEDS: FAMOTIDINE 20 MG INJ IV SCH ×2 (08:37→21:07)
--- NOTE | 2016-11-01 09:01 | RADRPT ---
PROCEDURE: Scrotal ultrasound CLINICAL INDICATION: Pain TECHNIQUE: Scrotal ultrasound was performed with sagittal and transverse views. Scott scale and co ron imaging was performed. Images were reviewed on high resolution PACS monitors. COMPARISON: None available FINDINGS: The right testicle measures 4.2 cm in length. There is normal size and echogenicity and morphology o f the right testicle with normal blood flow. The right epididymis is normal. The left testicle measures 5.0 cm in length. There is normal size and echogenicity and morphology of the left testicle with normal blood flow. The left epididymis is normal. Mild bilateral scrotal hydroceles are noted. No varicocele is identified. IMPRESSION: 1. No testicular torsion or mass is seen bilaterally. 2. Nonspecific mild bilateral scrotal hydroceles are noted, larger on the right. RPTAT: PP .Jakob Tai MD, Date Time Electronically viewed and signed by .Jakob Tai MD, on 11/01/2016 09:00 .R/
[2016-11-01 10:27] LABS: ANISOCYTOSIS 1+ (0-0); EOSINOPHILS % (M) 2 % (0-7); HYPOCHROMASIA 1+ (0-0); MONOCYTES % (M) 5 % (0-11); POLYCHROMASIA 2+ (0-0); REACTIVE LYMPHOCYTES% (M) 1 % (0-0)
--- NOTE | 2016-11-01 14:08 | CONS ---
Date/Time of Note Date/Time of Note DATE: 11/01/16 TIME: 14:06 Consult Date/Type/Reason Admit Date/Time Oct 30, 2016 at 04:53 Initial Consult Date 10/31/16 Type of Consultation: Pulm Subjective No events. Negative tumor markers and testicular U/S noted. Objective Vital Signs Date Time Temp Pulse Resp B/P Pulse Ox O2 Delivery O2 Flow Rate FiO2 11/01/16 08:03 97.8 55 18 118/58 97 10/30/16 15:53 Room Air Intake and Output 10/31/16 10/31/16 11/01/16 15:00 23:00 07:00 Intake Total 300 ml 2082.5 ml 1057.5 ml Balance 300 ml 2082.5 ml 1057.5 ml Exam HEENT: Neck supple; no JVD; no LAD CVS: RRR, S1 and S2 CHEST: Clear ABD: Soft, NT, + BS EXT: No c/c/e Results/Medications Result Diagram: 11/01/16 0458 11/01/16 0458 Results 24 hrs Laboratory Tests Test 11/01/16 04:50 11/01/16 04:58 Alpha Fetoprotein 3.06 Beta HCG, Quantitative < 2.4 White Blood Count 4.5 #L Red Blood Count 4.71 Hemoglobin 14.2 Hematocrit 42.7 Mean Corpuscular Volume 90.7 Mean Corpuscular Hemoglobin 30.1 Mean Corpuscular Hemoglobin Concent 33.3 Red Cell Distribution Width 12.5 Platelet Count 123 L Mean Platelet Volume 10.7 H Neutrophils % 60.8 Segmented Neutrophils % (Manual) 65 Lymphocytes % 27.3 Lymphocytes % (Manual) 27 Reactive Lymphocytes % (Manual) 1 H Monocytes % 8.2 Monocytes % (Manual) 5 Eosinophils % 3.3 Eosinophils % (Manual) 2 Basophils % 0.2 Nucleated Red Blood Cells % 0.0 Neutrophils # (Manual) Absolute Lymphocytes (Manual) 1.2 Lymphocytes # 1.2 Reactive Lymphocytes # 0.0 Monocytes # 0.4 Absolute Monocytes (Manual) 0.2 L Eosinophils # 0.2 Basophils # 0.0 Nucleated Red Blood Cells # 0.0 Polychromasia 2+ Hypochromasia 1+ Anisocytosis 1+ Macrocytosis 1+ Sodium Level 144 Potassium Level 3.8 Chloride Level 105 Carbon Dioxide Level 28 Anion Gap 15 Blood Urea Nitrogen 12 Creatinine 0.95 Glucose Level 90 Calcium Level 8.6 Medications Current Medications Ondansetron HCl (Zofran Inj) 4 mg Q6H PRN IV NAUSEA AND/OR VOMITING Last administered on 10/30/16 11:07; Admin Dose 4 MG; Start 10/30/16 at 07:00 Morphine Sulfate (morphine) 2 mg Q4H PRN IV pain Last administered on 21:03; Admin Dose 2 MG; Start 10/30/16 at 07:00 Famotidine 20 mg 20 mg BID IV Last administered on 11/01/16 08:37; Admin Dose 20 MG; Start 10/30/16 at 09:00 Dextrose/Sodium Chloride (D5-1/2ns) 1,000 ml @ 125 mls/hr Q8H IV Last administered on 11/01/16 12:57; Admin Dose 125 MLS/HR; Start 10/30/16 at 09:00 Docusate Sodium (Colace) 100 mg BID PO Last administered on 11/01/16 08:37; Admin Dose 100 MG; Start 10/30/16 at 09:00 Acetaminophen (Tylenol Tab) 650 mg Q6H PRN PO PAIN AND OR ELEVATED TEMP; Start 10/30/16 at 07:00 Docusate Sodium (Colace) 100 mg TID PO Last administered on 11/01/16 12:56; Admin Dose 100 MG; Start 10/31/16 at 13:00 Assessment/Plan Chief Complaint/Hosp Course 36-year-old man with no PMHx who presented with abdominal pain, found on thoracic CT to have a low density heterogenous anterior mediastinal mass and subtle random parenchymal subcm pulm nodules. Problems: Additional Assessment/Plan IMP: 1. 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 Random Hematogenous Pulm Nodules RECS: 1. Serum TB Quant Gold and Cocci serologies 2. CT-guided biopsy of anterior mediastinal mass (please discuss with IR) SHANELLE RUIZ MD Nov 01, 2016 14:08
--- NOTE | 2016-11-01 14:08 | PN ---
Date/Time of Note Date/Time of Note DATE: 11/01/16 TIME: 14:04 Assessment/Plan Lines/Catheters IV [facility] (from [facility]): Peripheral IV Assessment/Plan Assessment/Plan 36-year-old male with abdominal pain, mesenteric infiltration, mediastinal mass , pulmonary nodules * CT scan reviewed. Report reads as possible mesenteric adenitis, ileus, possible lymphoma * LDH not elevated. Agree that lymphoma probably not primary in differential. Germ cell tumor may be more likely. * Ultrasound-guided biopsy of right thyroid nodule * Consider CT-guided biopsy of most accessible lesion if possible * Agree with mediastinoscopy if less invasive methods of tissue diagnosis is not possible I discussed the above with the patient in detail and ensured that all of his questions were answered. Further recommendations were made based on patient's clinical course. Discussed with primary care team Subjective 24 Hr Interval Summary Feels better. Denies abdominal pain. Tolerating regular diet. Afebrile. Exam/Review of Systems Vital Signs Vitals Vital Signs Date Time Temp Pulse Resp B/P Pulse Ox O2 Delivery O2 Flow Rate FiO2 11/01/16 08:03 97.8 55 18 118/58 97 10/30/16 15:53 Room Air Intake and Output 10/31/16 10/31/16 11/01/16 15:00 23:00 07:00 Intake Total 300 ml 2082.5 ml 1057.5 ml Balance 300 ml 2082.5 ml 1057.5 ml Exam Free Text/Dictation GENERAL: Awake, alert, oriented x 3. No acute distress. CARDIOVASCULAR: S1S2, regular rate and rhythm. No murmurs appreciated. RESPIRATORY: Clear to auscultation bilaterally. ABDOMEN: Soft, bowel sounds present, nondistended, nontender to palpation. There is no rebound or guarding or evidence of peritonitis. There are no palpable masses. EXTREMITIES: Free range of motion x 4. No cyanosis, edema, or clubbing. Results Result Diagram: 11/01/16 0458 11/01/16 0458 MUNDO COCHRAN MD Nov 01, 2016 14:08
[2016-11-01 15:48] VITALS: BP 121/60; RESP 18
--- NOTE | 2016-11-01 17:58 | PN ---
Date/Time of Note Date/Time of Note DATE: 11/01/16 TIME: 17:56 Assessment/Plan VTE Prophylaxis VTE Prophylaxis Intervention: LMWH Lines/Catheters IV Catheter Type (from Nrsg): Peripheral IV Assessment/Plan Chief Complaint/Hosp Course 36 yo male [facility] who presented with abd pain. Imaging showing ileus and diffuse lymphadenopathy in abdomen, lungs, mediastinum concerning for lymphoma, etc Abdominal pain with ileus: - Had BM yesterday, feels better Lymphadenopathy: - Biopsy needed to evaluate for lymphoma, germ cell tumor, etc. Consult IR, CV surg, pulm. Not sure which is most easily accessible - LDH, AFP, HCG, testicular US all wnl - CONSULT INTERVENTIONAL RADIOLOGY IN AM ON WEDNESDAY TO DISCUSS OPTIONS FOR BIOPSY - Mediastinoscopy can be considered if need be Discharge following biopsy Problems: Subjective 24 Hr Interval Summary Free Text/Dictation Testicular US normal LDH/HCG/AFP all normal Patient feeling better, eating normal, no abd pain Exam/Review of Systems Vital Signs Vitals Vital Signs Date Time Temp Pulse Resp B/P Pulse Ox O2 Delivery O2 Flow Rate FiO2 11/01/16 15:48 97.6 60 18 121/60 97 10/30/16 15:53 Room Air Intake and Output 10/31/16 10/31/16 11/01/16 15:00 23:00 07:00 Intake Total 300 ml 2082.5 ml 1057.5 ml Balance 300 ml 2082.5 ml 1057.5 ml Results Result Diagram: 11/01/16 0458 11/01/16 0458 Results 24 hrs Laboratory Tests Test 11/01/16 04:50 11/01/16 04:58 Alpha Fetoprotein 3.06 Beta HCG, Quantitative < 2.4 White Blood Count 4.5 #L Red Blood Count 4.71 Hemoglobin 14.2 Hematocrit 42.7 Mean Corpuscular Volume 90.7 Mean Corpuscular Hemoglobin 30.1 Mean Corpuscular Hemoglobin Concent 33.3 Red Cell Distribution Width 12.5 Platelet Count 123 L Mean Platelet Volume 10.7 H Neutrophils % 60.8 Segmented Neutrophils % (Manual) 65 Lymphocytes % 27.3 Lymphocytes % (Manual) 27 Reactive Lymphocytes % (Manual) 1 H Monocytes % 8.2 Monocytes % (Manual) 5 Eosinophils % 3.3 Eosinophils % (Manual) 2 Basophils % 0.2 Nucleated Red Blood Cells % 0.0 Neutrophils # (Manual) Absolute Lymphocytes (Manual) 1.2 Lymphocytes # 1.2 Reactive Lymphocytes # 0.0 Monocytes # 0.4 Absolute Monocytes (Manual) 0.2 L Eosinophils # 0.2 Basophils # 0.0 Nucleated Red Blood Cells # 0.0 Polychromasia 2+ Hypochromasia 1+ Anisocytosis 1+ Macrocytosis 1+ Sodium Level 144 Potassium Level 3.8 Chloride Level 105 Carbon Dioxide Level 28 Anion Gap 15 Blood Urea Nitrogen 12 Creatinine 0.95 Glucose Level 90 Calcium Level 8.6 Medications Medications Current Medications Ondansetron HCl (Zofran Inj) 4 mg Q6H PRN IV NAUSEA AND/OR VOMITING Last administered on 10/30/16 11:07; Admin Dose 4 MG; Start 10/30/16 at 07:00 Morphine Sulfate (morphine) 2 mg Q4H PRN IV pain Last administered on 21:03; Admin Dose 2 MG; Start 10/30/16 at 07:00 Famotidine 20 mg 20 mg BID IV Last administered on 11/01/16 08:37; Admin Dose 20 MG; Start 10/30/16 at 09:00 Dextrose/Sodium Chloride (D5-1/2ns) 1,000 ml @ 125 mls/hr Q8H IV Last administered on 11/01/16 12:57; Admin Dose 125 MLS/HR; Start 10/30/16 at 09:00 Docusate Sodium (Colace) 100 mg BID PO Last administered on 11/01/16 08:37; Admin Dose 100 MG; Start 10/30/16 at 09:00 Acetaminophen (Tylenol Tab) 650 mg Q6H PRN PO PAIN AND OR ELEVATED TEMP; Start 10/30/16 at 07:00 Docusate Sodium (Colace) 100 mg TID PO Last administered on 11/01/16 12:56; Admin Dose 100 MG; Start 10/31/16 at 13:00 ESTRADA TOMPKINS MD Nov 01, 2016 17:58
[2016-11-01 20:00] VITALS: BP 105/64; RESP 18
[2016-11-02 02:00] VITALS: BP 105/60; RESP 19
[2016-11-02] MEDS: DOCUSATE SODIUM 100 MG CAP PO SCH ×2 (09:00→21:05)
[2016-11-02 09:03] VITALS: BP 106/68; RESP 20
[2016-11-02] MEDS: FAMOTIDINE 20 MG INJ IV SCH ×2 (09:29→21:05)
[2016-11-02 10:36] LABS: BASOPHILS % 0.2 % (0.0-2.0); EOSINOPHILS # 0.1 10^3/ul (0.0-0.5); EOSINOPHILS % 1.5 % (0.0-7.0); HEMATOCRIT 46.3 % (42.0-52.0); HEMOGLOBIN 15.8 g/dl (14.0-18.0); LYMPHOCYTES # 1.1 10^3/ul (0.8-2.9); LYMPHOCYTES % 21.6 % (15.0-51.0); MEAN CORPUSCULAR HEMOGLOBIN 30.6 pg (29.0-33.0); MEAN CORPUSCULAR HGB CONC 34.1 g/dl (32.0-37.0); MEAN CORPUSCULAR VOLUME 89.7 fl (82.0-101.0); MEAN PLATELET VOLUME 10.5 fl (7.4-10.4); MONOCYTE # 0.4 10^3/ul (0.3-0.9); MONOCYTES % 7.6 % (0.0-11.0); NEUTROPHILS % 68.7 % (39.0-77.0); PLATELET COUNT 142 10^3/UL (140-415); RED BLOOD COUNT 5.16 10^6/ul (4.70-6.10); WHITE BLOOD COUNT 5.3 10^3/ul (4.8-10.8)
[2016-11-02 10:40] LABS: INR 0.94; PROTIME 12.6 Sec (12.2-14.2)
[2016-11-02 10:41] LABS: PARTIAL THROMBOPLASTIN TIME 24.8 Sec (25.0-35.0)
[2016-11-02 10:54] LABS: CREATININE 0.98 mg/dl (0.61-1.24); POTASSIUM 4.6 mmol/L (3.5-5.1)
--- NOTE | 2016-11-02 12:44 | CONS ---
Date/Time of Note Date/Time of Note DATE: 11/02/16 TIME: 12:43 Consult Date/Type/Reason Admit Date/Time Oct 30, 2016 at 04:53 Initial Consult Date 10/31/16 Type of Consultation: Pulm Subjective Remains comfortable. Objective Vital Signs Date Time Temp Pulse Resp B/P Pulse Ox O2 Delivery O2 Flow Rate FiO2 11/02/16 09:03 97.8 55 20 106/68 96 10/30/16 15:53 Room Air Intake and Output 11/01/16 11/01/16 11/02/16 14:59 22:59 06:59 Intake Total 750 ml 1645 ml 150 ml Balance 750 ml 1645 ml 150 ml Exam Exam HEENT: Neck supple; no JVD; no LAD CVS: RRR, S1 and S2 CHEST: Clear ABD: Soft, NT, + BS EXT: No c/c/e Results/Medications Result Diagram: 11/02/1658 11/02/16 0958 Results 24 hrs Laboratory Tests Test 11/02/16 09:58 White Blood Count 5.3 Red Blood Count 5.16 Hemoglobin 15.8 Hematocrit 46.3 Mean Corpuscular Volume 89.7 Mean Corpuscular Hemoglobin 30.6 Mean Corpuscular Hemoglobin Concent 34.1 Red Cell Distribution Width 12.0 Platelet Count 142 Mean Platelet Volume 10.5 H Neutrophils % 68.7 Lymphocytes % 21.6 Monocytes % 7.6 Eosinophils % 1.5 Basophils % 0.2 Nucleated Red Blood Cells % 0.0 Neutrophils # (Manual) 3.6 Lymphocytes # 1.1 Monocytes # 0.4 Eosinophils # 0.1 Basophils # 0.0 Nucleated Red Blood Cells # 0.0 Prothrombin Time 12.6 Prothrombin Time Ratio 1.0 INR International Normalized Ratio 0.94 Activated Partial Thromboplast Time 24.8 L Sodium Level 145 H Potassium Level 4.6 Chloride Level 102 Carbon Dioxide Level 31 Anion Gap 17 H Blood Urea Nitrogen 13 Creatinine 0.98 Glucose Level 99 Calcium Level 9.0 Medications Current Medications Ondansetron HCl (Zofran Inj) 4 mg Q6H PRN IV NAUSEA AND/OR VOMITING Last administered on 10/30/16 11:07; Admin Dose 4 MG; Start 10/30/16 at 07:00 Morphine Sulfate (morphine) 2 mg Q4H PRN IV pain Last administered on 21:03; Admin Dose 2 MG; Start 10/30/16 at 07:00 Famotidine (Pepcid Iv) 20 mg BID IV Last administered on 11/02/16 09:29; Admin Dose 20 MG; Start 10/30/16 at 09:00 Docusate Sodium (Colace) 100 mg BID PO Last administered on 11/01/16 21:07; Admin Dose 100 MG; Start 10/30/16 at 09:00 Acetaminophen (Tylenol Tab) 650 mg Q6H PRN PO PAIN AND OR ELEVATED TEMP; Start 10/30/16 at 07:00 Assessment/Plan Chief Complaint/Hosp Course Chief Complaint/Hosp Course 36-year-old man with no PMHx who presented with abdominal pain, found on thoracic CT to have a low density heterogenous anterior mediastinal mass and subtle random parenchymal subcm pulm nodules. IMP: 1. 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 Random Hematogenous Pulm Nodules RECS: 1. Serum TB Quant Gold and Cocci serologies 2. CT-guided biopsy of anterior mediastinal mass will discuss with radiology. Await rule out TB. Problems: SOLANGE FARNSWORTH MD, [facility] Nov 02, 2016 12:44
[2016-11-02] MEDS ORDERED: LIDOCAINE 1% (MDV) 20 ML INJ ONE (14:21)
[2016-11-02 15:45] VITALS: BP 138/78; PULSE 66; RESP 16
--- NOTE | 2016-11-02 15:52 | PN ---
Date/Time of Note Date/Time of Note DATE: 11/02/16 TIME: 15:50 Assessment/Plan VTE Prophylaxis VTE Prophylaxis Intervention: ambulation Lines/Catheters IV Catheter Type (from Nrs): Saline Lock Assessment/Plan [facility] Complaint[facility] 36 [facility]. Imaging showing ileus and diffuse lymphadenopathy in abdomen, lungs, mediastinum concerning for lymphoma, etc Abdominal pain with ileus: - Had BM yesterday, feels better Lymphadenopathy: - Biopsy today to evaluate for lymphoma, germ cell tumor, etc. Consult IR, CV surg, pulm. Not sure which is most easily accessible - LDH, AFP, HCG, testicular US all wnl -Oncology consultation obtained - Mediastinoscopy can be considered if need be Prophylaxis: Ambulation Problems: Subjective 24 Hr Interval Summary Constitutional: no complaints Exam/Review of Systems Vital Signs Vitals Vital Signs Date Time Temp Pulse Resp B/P Pulse Ox O2 Delivery O2 Flow Rate FiO2 11/02/16 09:03 97.8 55 20 106/68 96 10/30/16 15:53 Room Air Intake and Output 11/01/16 11/01/16 11/02/16 15:00 23:00 07:00 Intake Total 750 ml 1645 ml 150 ml Balance 750 ml 1645 ml 150 ml Exam Constitutional: alert, oriented Respiratory: clear to auscultation Cardiovascular: regular rate and rhythm Gastrointestinal: soft, No distended Musculoskeletal: nl extremities to inspection Results Result Diagram: 11/02/16 0958 11/02/16 0958 Results 24 hrs Laboratory Tests Test 11/02/16 09:58 White Blood Count 5.3 Red Blood Count 5.16 Hemoglobin 15.8 Hematocrit 46.3 Mean Corpuscular Volume 89.7 Mean Corpuscular Hemoglobin 30.6 Mean Corpuscular Hemoglobin Concent 34.1 Red Cell Distribution Width 12.0 Platelet Count 142 Mean Platelet Volume 10.5 H Neutrophils % 68.7 Lymphocytes % 21.6 Monocytes % 7.6 Eosinophils % 1.5 Basophils % 0.2 Nucleated Red Blood Cells % 0.0 Neutrophils # (Manual) 3.6 Lymphocytes # 1.1 Monocytes # 0.4 Eosinophils # 0.1 Basophils # 0.0 Nucleated Red Blood Cells # 0.0 Prothrombin Time 12.6 Prothrombin Time Ratio 1.0 INR International Normalized Ratio 0.94 Activated Partial Thromboplast Time 24.8 L Sodium Level 145 H Potassium Level 4.6 Chloride Level 102 Carbon Dioxide Level 31 Anion Gap 17 H Blood Urea Nitrogen 13 Creatinine 0.98 Glucose Level 99 Calcium Level 9.0 Medications Medications Current Medications Ondansetron HCl (Zofran Inj) 4 mg Q6H PRN IV NAUSEA AND/OR VOMITING Last administered on 10/30/16 11:07; Admin Dose 4 MG; Start 10/30/16 at 07:00 Morphine Sulfate (morphine) 2 mg Q4H PRN IV pain Last administered on 21:03; Admin Dose 2 MG; Start 10/30/16 at 07:00 Famotidine (Pepcid Iv) 20 mg BID IV Last administered on 11/02/16 09:29; Admin Dose 20 MG; Start 10/30/16 at 09:00 Docusate Sodium (Colace) 100 mg BID PO Last administered on 11/01/16 21:07; Admin Dose 100 MG; Start 10/30/16 at 09:00 Acetaminophen (Tylenol Tab) 650 mg Q6H PRN PO PAIN AND OR ELEVATED TEMP; Start 10/30/16 at 07:00 LEISA ROSARIO Nov 02, 2016 15:52
--- NOTE | 2016-11-02 16:18 | CONS ---
Date/Time of Note Date/Time of Note DATE: 11/02/16 TIME: 16:12 Assessment/Plan Assessment/Plan Additional Assessment/Plan 36 yo man with abnormal area in the mediastinum that was biopsied about an hour ago. Results are pending. Note that CT shows mediastinal and mesenteric stranding and some pulmonary nodules. US of testes were negative for tumors. We will follow up on pathology but at this time there is no clear diagnosis of carcinoma or lymphoma although these are definite possibilities. Consultation Date/Type/Reason Admit Date/Time Oct 30, 2016 at 04:53 Date of Consultation: Nov 02, 2016 Type of Consultation: oncology Reason for Consultation abnormal CT Referring Provider: LEISA ROSARIO Hx of Present Illness Pt has no significant medical history until he came to ER about four days ago for vague epigastric discomfort. CT showed mediastinal, mesenteric stranding and some small pulmonary nodules. No history of fever, weight loss or night sweats. PMH positive for smoking but otherwise negative. Constitutional: no complaints Eyes: no complaints ENT: no complaints Cardiovascular: no complaints Gastrointestinal: no complaints, pain Genitourinary: no complaints Musculoskeletal: no complaints Skin: no complaints Neurologic: no complaints Endocrine: no complaints Lymphatic: no complaints Psychological: nl mood/affect, no complaints Past Medical History Medical History: no pertinent history Past Surgical History Past Surgical Hx: no surgical history Social History Smoking Status: Current every day smoker Drug Use: none Exam/Review of Systems Vital Signs Vitals Vital Signs Date Time Temp Pulse Resp B/P Pulse Ox O2 Delivery O2 Flow Rate FiO2 11/02/16 09:03 97.8 55 20 106/68 96 10/30/16 15:53 Room Air Intake and Output 11/01/16 11/01/16 11/02/16 15:00 23:00 07:00 Intake Total 750 ml 1645 ml 150 ml Balance 750 ml 1645 ml 150 ml Exam Constitutional: alert, oriented Head: normocephalic Eyes: nl conjunctiva ENMT: nl external ears & nose Neck: supple Respiratory: clear to auscultation Cardiovascular: regular rate and rhythm Gastrointestinal: nl liver, spleen, non-tender, soft Extremities: normal pulses Neurological: nl mental status, nl speech, nl strength Lymph: nl lymph nodes Results Result Diagram: 11/02/1658 11/02/16 0958 Results 24 hrs Laboratory Tests Test 11/02/16 09:58 White Blood Count 5.3 Red Blood Count 5.16 Hemoglobin 15.8 Hematocrit 46.3 Mean Corpuscular Volume 89.7 Mean Corpuscular Hemoglobin 30.6 Mean Corpuscular Hemoglobin Concent 34.1 Red Cell Distribution Width 12.0 Platelet Count 142 Mean Platelet Volume 10.5 H Neutrophils % 68.7 Lymphocytes % 21.6 Monocytes % 7.6 Eosinophils % 1.5 Basophils % 0.2 Nucleated Red Blood Cells % 0.0 Neutrophils # (Manual) 3.6 Lymphocytes # 1.1 Monocytes # 0.4 Eosinophils # 0.1 Basophils # 0.0 Nucleated Red Blood Cells # 0.0 Prothrombin Time 12.6 Prothrombin Time Ratio 1.0 INR International Normalized Ratio 0.94 Activated Partial Thromboplast Time 24.8 L Sodium Level 145 H Potassium Level 4.6 Chloride Level 102 Carbon Dioxide Level 31 Anion Gap 17 H Blood Urea Nitrogen 13 Creatinine 0.98 Glucose Level 99 Calcium Level 9.0 Medications Medications Current Medications Ondansetron HCl (Zofran Inj) 4 mg Q6H PRN IV NAUSEA AND/OR VOMITING Last administered on 10/30/16 11:07; Admin Dose 4 MG; Start 10/30/16 at 07:00 Morphine Sulfate (morphine) 2 mg Q4H PRN IV pain Last administered on 21:03; Admin Dose 2 MG; Start 10/30/16 at 07:00 Famotidine (Pepcid Iv) 20 mg BID IV Last administered on 11/02/16 09:29; Admin Dose 20 MG; Start 10/30/16 at 09:00 Docusate Sodium (Colace) 100 mg BID PO Last administered on 11/01/16 21:07; Admin Dose 100 MG; Start 10/30/16 at 09:00 Acetaminophen (Tylenol Tab) 650 mg Q6H PRN PO PAIN AND OR ELEVATED TEMP; Start 10/30/16 at 07:00 LILIAN DAVIS MD Nov 02, 2016 16:18
--- NOTE | 2016-11-02 17:52 | RADRPT ---
PROCEDURE: Ultrasound guided thyroid biopsy. CLINICAL INDICATION: Right lobe thyroid nodule. TECHNIQUE: Prior to the procedure, informed consent was obtained. Risks including bleeding and in fection were explained to the patient. The patient understood was willing to proceed. A procedural pause was performed. The patient's name, date of , and procedure to be performed were verifie d. Using local anesthetic, sterile technique and ultrasound guidance, a 25-gauge needle was advanced in to the nodule in the right lobe. Multiple passes were made. Adequate tissue was obtained and sent for pathologic analysis. The pathologist indicated there was adequate tissue for diagnostic purpos es. The patient tolerated the procedure well. COMPARISON: Thyroid ultrasound done earlier the same day. FINDINGS: Images demonstrate the needle within the nodule in question. IMPRESSION: 1. Satisfactory ultrasound-guided right lobe thyroid nodule biopsy. RPTAT: QQ .Abel De Jesus MD, Date Time Electronically viewed and signed by .Abel De Jesus MD, on 11/02/2016 17:52 .R/
--- NOTE | 2016-11-02 17:53 | RADRPT ---
PROCEDURE: US Thyroid. CLINICAL INDICATION: Thyroid nodule. TECHNIQUE: High-resolution sonography of the thyroid was performed in the axial and sagittal plane s. COMPARISON: None. FINDINGS: The right lobe measures 4.3 x 2.1 x 2.4 cm. The left lobe measures 4.4 x 1.7 x 1.3 cm. The isthmus measures 0.4 cm. There is a hypoechoic nodule in the right lobe inferiorly measuring 1.5 x 1.6 centimeter. There is no other thyroid nodule. Thyroid echogenicity is normal. The thyroid is normal in size. IMPRESSION: 1. Hypoechoic nodule in the right lobe inferiorly measuring 1.5 x 1.6 cm. Ultrasound-guided biopsy advised. 2. Otherwise unremarkable study. RPTAT: QQ .Abel De Jesus MD, Date Time Electronically viewed and signed by .Abel De Jesus MD, on 11/02/2016 17:53 .R/
[2016-11-02 20:00] VITALS: BP 119/69; RESP 19
[2016-11-03 02:00] VITALS: BP 105/55; RESP 20
[2016-11-03 05:57] LABS: CALCIUM 8.7 mg/dl (8.4-10.2); CREATININE 1.04 mg/dl (0.61-1.24); POTASSIUM 3.8 mmol/L (3.5-5.1)
[2016-11-03] MEDS: FAMOTIDINE 20 MG INJ IV SCH (08:00)
[2016-11-03] MEDS: DOCUSATE SODIUM 100 MG CAP PO SCH ×2 (08:00→21:09)
[2016-11-03 08:30] VITALS: BP 118/72; RESP 20
--- NOTE | 2016-11-03 10:34 | CONS ---
Date/Time of Note Date/Time of Note DATE: 11/03/16 TIME: 10:33 Consult Date/Type/Reason Admit Date/Time Oct 30, 2016 at 04:53 Initial Consult Date 10/31/16 Type of Consultation: Pulm Ordering Provider: LEISA ROSARIO Subjective s/p biopsy. Stable with no complications. Objective Vital Signs Date Time Temp Pulse Resp B/P Pulse Ox O2 Delivery O2 Flow Rate FiO2 11/03/16 08:30 98.0 60 20 118/72 99 11/02/16 15:45 Room Air Intake and Output 11/02/16 11/02/16 11/03/16 15:00 23:00 07:00 Intake Total 300 ml 600 ml Output Total 800 ml Balance -500 ml 600 ml Results/Medications Result Diagram: 11/02/16 0958 11/03/16 0431 Results 24 hrs Laboratory Tests Test 11/03/16 04:31 Sodium Level 145 H Potassium Level 3.8 Chloride Level 102 Carbon Dioxide Level 29 Anion Gap 18 H Blood Urea Nitrogen 14 Creatinine 1.04 Glucose Level 105 Calcium Level 8.7 Medications Current Medications Ondansetron HCl (Zofran Inj) 4 mg Q6H PRN IV NAUSEA AND/OR VOMITING Last administered on 10/30/16 11:07; Admin Dose 4 MG; Start 10/30/16 at 07:00 Morphine Sulfate (morphine) 2 mg Q4H PRN IV pain Last administered on 21:03; Admin Dose 2 MG; Start 10/30/16 at 07:00 Docusate Sodium (Colace) 100 mg BID PO Last administered on 11/03/16 08:00; Admin Dose 100 MG; Start 10/30/16 at 09:00 Acetaminophen (Tylenol Tab) 650 mg Q6H PRN PO PAIN AND OR ELEVATED TEMP Last administered on 11/02/16 21:06; Admin Dose 650 MG; Start 10/30/16 at 07:00 Famotidine (Pepcid) 20 mg BID PO ; Start 11/03/16 at 21:00 Assessment/Plan Chief Complaint/Hosp Course Chief Complaint/Hosp Course 36-year-old man with no PMHx who presented with abdominal pain, found on thoracic CT to have a low density heterogenous anterior mediastinal mass and subtle random parenchymal subcm pulm nodules. IMP: 1. 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 s/p biopsy. u/s testes normal . 2. Random Hematogenous Pulm Nodules RECS: 1. Serum TB Quant Gold and Cocci serologies 2. CT-guided biopsy of anterior mediastinal mass, results pending needs PMD for results follow up. Problems: SOLANGE FARNSWORTH MD, [facility] Nov 03, 2016 10:34
[2016-11-03 15:00] VITALS: BP 106/57; RESP 20
--- NOTE | 2016-11-03 16:48 | PDOCDIS ---
Discharge Instructions CONDITION Patient Condition: Good HOME CARE INSTRUCTIONS: Diet Instructions: Regular ACTIVITY: Activity Restrictions: No Restrictions FOLLOW UP/APPOINTMENTS Follow-up Plan F/U WITH DR. LILIAN DAVIS IN 1-2 WEEKS LEISA ROSARIO Nov 03, 2016 16:48
--- NOTE | 2016-11-03 16:57 | PN ---
Date/Time of Note Date/Time of Note DATE: 11/03/16 TIME: 16:55 Assessment/Plan VTE Prophylaxis VTE Prophylaxis Intervention: ambulation Lines/Catheters IV [facility]from [facility] Saline Lock Assessment/Plan Chief Complaint/Hosp Course 36 yo male with no PMH who presented with abd pain. Imaging showing ileus and diffuse lymphadenopathy in abdomen, lungs, mediastinum concerning for lymphoma, etc Abdominal pain with ileus: - Had BM yesterday, feels better Lymphadenopathy: - Biopsy tomorrow to evaluate for lymphoma, germ cell tumor, etc. Consult IR, CV surg, pulm. Not sure which is most easily accessible - LDH, AFP, HCG, testicular US all wnl -Oncology consultation obtained -Thyroid Path is benign - Mediastinoscopy can be considered if need be Prophylaxis: Ambulation Problems: Subjective 24 Hr Interval Summary Constitutional: no complaints Exam/Review of Systems Vital Signs Vitals Vital Signs Date Time Temp Pulse Resp B/P Pulse Ox O2 Delivery O2 Flow Rate FiO2 11/03/16 08:30 98.0 60 20 118/72 99 11/02/16 15:45 Room Air Intake and Output 11/02/16 11/02/16 11/03/16 15:00 23:00 07:00 Intake Total 300 ml 600 ml Output Total 800 ml Balance -500 ml 600 ml Exam Constitutional: alert, oriented Respiratory: clear to auscultation Cardiovascular: regular rate and rhythm Gastrointestinal: soft, No distended Musculoskeletal: nl extremities to inspection Results Result Diagram: 11/02/16 0958 11/03/16 0431 Results 24 hrs Laboratory Tests Test 11/03/16 04:31 Sodium Level 145 H Potassium Level 3.8 Chloride Level 102 Carbon Dioxide Level 29 Anion Gap 18 H Blood Urea Nitrogen 14 Creatinine 1.04 Glucose Level 105 Calcium Level 8.7 Medications Medications Current Medications Ondansetron HCl (Zofran Inj) 4 mg Q6H PRN IV NAUSEA AND/OR VOMITING Last administered on 10/30/16 11:07; Admin Dose 4 MG; Start 10/30/16 at 07:00 Morphine Sulfate (morphine) 2 mg Q4H PRN IV pain Last administered on 21:03; Admin Dose 2 MG; Start 10/30/16 at 07:00 Docusate Sodium (Colace) 100 mg BID PO Last administered on 11/03/16 08:00; Admin Dose 100 MG; Start 10/30/16 at 09:00 Acetaminophen (Tylenol Tab) 650 mg Q6H PRN PO PAIN AND OR ELEVATED TEMP Last administered on 11/02/16 21:06; Admin Dose 650 MG; Start 10/30/16 at 07:00 Famotidine (Pepcid) 20 mg BID PO ; Start 11/03/16 at 21:00 LEISA ROSARIO Nov 03, 2016 16:57
[2016-11-03 20:11] VITALS: BP 105/51; RESP 18
[2016-11-03] MEDS: FAMOTIDINE 20 MG TAB PO SCH (21:09)
[2016-11-04 02:08] VITALS: BP 90/51; RESP 18
[2016-11-04 05:45] LABS: BASOPHILS % 0.3 % (0.0-2.0); EOSINOPHILS # 0.2 10^3/ul (0.0-0.5); EOSINOPHILS % 2.8 % (0.0-7.0); HEMATOCRIT 45.6 % (42.0-52.0); HEMOGLOBIN 15.2 g/dl (14.0-18.0); LYMPHOCYTES # 1.5 10^3/ul (0.8-2.9); LYMPHOCYTES % 24.5 % (15.0-51.0); MEAN CORPUSCULAR HEMOGLOBIN 30.3 pg (29.0-33.0); MEAN CORPUSCULAR HGB CONC 33.3 g/dl (32.0-37.0); MEAN CORPUSCULAR VOLUME 90.8 fl (82.0-101.0); MEAN PLATELET VOLUME 10.3 fl (7.4-10.4); MONOCYTE # 0.5 10^3/ul (0.3-0.9); MONOCYTES % 8.8 % (0.0-11.0); NEUTROPHILS % 62.9 % (39.0-77.0); PLATELET COUNT 144 10^3/UL (140-415); RED BLOOD COUNT 5.02 10^6/ul (4.70-6.10); RED CELL DISTRIBUTION WIDTH 12.5 % (11.5-14.5)
[2016-11-04 08:00] VITALS: BP 110/57; RESP 20
[2016-11-04] MEDS: DOCUSATE SODIUM 100 MG CAP PO SCH (09:00)
[2016-11-04] MEDS: FAMOTIDINE 20 MG TAB PO SCH (12:03)
--- NOTE | 2016-11-04 13:13 | CONS ---
Date/Time of Note Date/Time of Note DATE: 11/04/16 TIME: 13:11 Consult Date/Type/Reason Admit Date/Time Oct 30, 2016 at 04:53 Initial Consult Date 10/31/16 Type of Consultation: Pulm Ordering Provider: LEISA ROSARIO Subjective Comfortable Objective Vital Signs Date Time Temp Pulse Resp B/P Pulse Ox O2 Delivery O2 Flow Rate FiO2 11/04/16 08:00 98.6 64 20 110/57 96 11/02/16 15:45 Room Air Intake and Output 11/03/16 11/03/16 11/04/16 15:00 23:00 07:00 Intake Total 300 ml Balance 300 ml Exam GENERAL: wnwd young male. VITAL SIGNS: per chart NECK: Supple. No JVD or lymphadenopathy. CARDIAC EXAM: S1, S2. No added sounds or murmurs. CHEST: clear bilaterally, No added sounds, rales or wheezes ABDOMEN: Soft, nontender. No guarding or rebound. EXTREMITIES: No cyanosis, clubbing or edema. NEUROLOGIC: Generalized weakness. No focal deficits. Results/Medications Result Diagram: 11/04/16 0443 11/03/16 0431 Results 24 hrs Laboratory Tests Test 11/04/16 04:43 White Blood Count 6.0 Red Blood Count 5.02 Hemoglobin 15.2 Hematocrit 45.6 Mean Corpuscular Volume 90.8 Mean Corpuscular Hemoglobin 30.3 Mean Corpuscular Hemoglobin Concent 33.3 Red Cell Distribution Width 12.5 Platelet Count 144 Mean Platelet Volume 10.3 Neutrophils % 62.9 Lymphocytes % 24.5 Monocytes % 8.8 Eosinophils % 2.8 Basophils % 0.3 Nucleated Red Blood Cells % 0.0 Neutrophils # (Manual) 3.8 Lymphocytes # 1.5 Monocytes # 0.5 Eosinophils # 0.2 Basophils # 0.0 Nucleated Red Blood Cells # 0.0 Erythrocyte Sedimentation Rate 2 Medications Current Medications Ondansetron HCl (Zofran Inj) 4 mg Q6H PRN IV NAUSEA AND/OR VOMITING Last administered on 10/30/16 11:07; Admin Dose 4 MG; Start 10/30/16 at 07:00 Morphine Sulfate (morphine) 2 mg Q4H PRN IV pain Last administered on 21:03; Admin Dose 2 MG; Start 10/30/16 at 07:00 Docusate Sodium (Colace) 100 mg BID PO Last administered on 11/03/16 21:09; Admin Dose 100 MG; Start 10/30/16 at 09:00 Acetaminophen (Tylenol Tab) 650 mg Q6H PRN PO PAIN AND OR ELEVATED TEMP Last administered on 11/02/16 21:06; Admin Dose 650 MG; Start 10/30/16 at 07:00 Famotidine (Pepcid) 20 mg BID PO Last administered on 11/04/16 12:03; Admin Dose 20 MG; Start 11/03/16 at 21:00 Assessment/Plan Chief Complaint/Hosp Course Chief Complaint/Hosp Course 36-year-old man with no PMHx who presented with abdominal pain, found on thoracic CT to have a low density heterogenous anterior mediastinal mass and subtle random parenchymal subcm pulm nodules. IMP: 1. 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 s/p biopsy. u/s testes normal . 2. Random Hematogenous Pulm Nodules RECS: 1. Serum TB Quant Gold and Cocci serologies 2. biopsy thyroid negative for malignancy 3. f/u pmd. needs PMD for results follow up. Problems: SOLANGE FARNSWORTH MD, [facility] Nov 04, 2016 13:13
[2016-11-04 13:49] LABS: TB-NIL 0.11 IU/mL
[2016-11-04 14:00] VITALS: BP 118/64; RESP 18
--- NOTE | 2016-11-05 19:14 | DS ---
Date/Time of Note Date/Time of Note DATE: 11/05/16 TIME: 19:08 Discharge Summary Admission/Discharge Info Admit Date/Time Oct 30, 2016 at 04:53 Discharge Date/Time Nov 04, 2016 at 16:40 Discharge Diagnosis 1. Abdominal pain with ileus: Resolved 2. Lymphadenopathy: Asymptomatic -Nodes are too small for biopsy, patient follow-up with PCP and have a repeat CT in 6 months -Oncology consultation appreciated - LDH, AFP, HCG, testicular US, thyroid nodule pathology all wnl -Oncology consultation appreciated Patient Condition: Good Hospital Course Patient is a 36-year-old man with no PMHx who presented with abdominal pain, found on thoracic CT to have a low density heterogenous anterior mediastinal mass and subtle random parenchymal subcm pulm nodules. Lymph nodes were too small for CT-guided biopsy, patient had a malignancy workup including thyroid nodule biopsy that was negative. Patient was seen by oncology and patient had no B symptoms to suggest lymphoma. Patient was felt to require a CT in 6 months and if lymph nodes have increased in size we need a biopsy at that time. Patient did have ileus contributing to his abdominal pain which resolved. The discharge patient vitals, labs physical exam stable he had no acute complaints, questions were answered. Home Meds Discontinued Reported Medications [Ibuprofen] No Conflict Check 10/24/11 Follow-up Plan FOLLOW UP WITH YOUR PRIMARY CARE PHYSICIAN IN 1-2 WEEKS Primary Care Provider Care Physician No Primary Time spent on discharge: > 30 minutes LEISA ROSARIO Nov 05, 2016 19:14
== END 2016-11-04 16:40 | disposition home or self-care (01) | DRG 394 ==
LOC: E/R 02:14 → PP2 04:53
PROVIDERS: ADMIT Family Medicine; ATTEND Family Medicine
PROC: 0GBH3ZX Excision of Right Thyroid Gland Lobe, Percutaneous Approach, Diagnostic (ICD-10-PCS; principal; 2016-11-02)
DX: I88.0 Nonspecific mesenteric lymphadenitis (principal); K56.7 Ileus, unspecified; D72.829 Elevated white blood cell count, unspecified; E04.1 Nontoxic single thyroid nodule; D38.3 Neoplasm of uncertain behavior of mediastinum; E86.0 Dehydration; R03.0 Elevated blood-pressure reading, without diagnosis of hypertension; Z72.0 Tobacco use; R91.8 Other nonspecific abnormal finding of lung field
CPT/HCPCS: 36415; 71010; 71260; 74176; 76536; 76870; 80048; 80053; 80061; 80076; 82105; 82247; 82248; 83036; 83615; 83690; 83735; 84100; 84443; 84702; 85025; 85610; 85651; 85730; 86140; 86480; 86635; 88104; 88305; 88313; 96361; 96365; 96366; 96367; 96375; 96376; J0744; J1170; J2270; J2405; J7030; J7042; Q9967